=== PATIENT | female | born 1995 | race Caucasian/White ===

== ENCOUNTER 2016-12-06 08:22 | Inpatient (IN) | payer OTHER ==
[~2016-12-06] VITALS: Ht 162.6 cm; Wt 67.1 kg
[2016-12-06] MEDS ORDERED: OXYTOCIN/NORMAL SALINE 1,000 ML IV SCH ×2 (08:43→22:33)
[2016-12-06] MEDS ORDERED: TERBUTALINE SULFATE 1 MG/ML VIAL SUBCUT ONE (08:45)
[2016-12-06] MEDS ORDERED: DINOPROSTONE 10 MG SUPP VG ONE (08:45)
[2016-12-06] MEDS: LR 1,000 ML IV SCH ×4 (09:29→20:56)
[2016-12-06 09:37] LABS: BASOPHILS # (AUTO) 0.1 K/uL (0.0-0.2); EOSINOPHILS # (AUTO) 0.1 K/uL (0.0-0.4); EOSINOPHILS % (AUTO) 0.7 % (0.0-4.0); LYMPHOCYTES # (AUTO) 2.3 K/uL (1.0-5.5); MEAN CORPUSCULAR HGB CONC 33 % (32-36); MEAN CORPUSCULAR VOLUME 92 fL (79.0-98.0); MONOCYTES # (AUTO) 0.5 K/uL (0.0-1.0); RED CELL DISTRIBUTION WIDTH 13.4 % (9.0-15.0)
[2016-12-06 09:41] LABS: BASOPHILS % (AUTO) 0.7 % (0.0-2.0); HEMATOCRIT 39.2 % (36-48); HEMOGLOBIN 12.8 g/dL (12.0-16.0); LYMPHOCYTES % (AUTO) 25.9 % (20.5-51.5); MEAN CORPUSCULAR HEMOGLOBIN 30 pg (27-31); MONOCYTES % (AUTO) 5.9 % (1.7-9.3); NEUTROPHILS # (AUTO) 5.8 K/uL (1.8-7.7); NEUTROPHILS % (AUTO) 66.8 % (40.0-70.0); RED BLOOD CELL COUNT(AUTO) 4.25 MIL/uL (4.2-6.2); WHITE BLOOD COUNT (AUTO) 8.8 K/uL (4.8-10.8)
[2016-12-06 10:03] LABS: PLATELET COUNT (AUTO) 89 K/uL (130-430)
[2016-12-06 14:44] VITALS: BP_SYST 124
[2016-12-06] MEDS: NALBUPHINE HCL 10 MG/ML AMP IVP PRN ×2 (15:21→17:30)
[2016-12-06] MEDS ORDERED: ACETAMINOPHEN 325 MG TABLET PO PRN (15:45)
[2016-12-06] MEDS ORDERED: ACETAMINOPHEN 325 MG TABLET ONE (15:53)
[2016-12-06] MEDS ORDERED: FENT2mCg/mL-ROPIVA0.2%/NS EPID 150 ML EP ONE (19:42)
[2016-12-06] MEDS ORDERED: LR 500 ML IV ONE (20:41)
[2016-12-06] MEDS ORDERED: ePHEDrine sulfate 50 MG/ML VIAL IVP PRN (20:45)
[2016-12-06] MEDS ORDERED: FENT2mCg/mL-ROPIVA0.2%/NS EPID 150 ML EP SCH (20:45)
[2016-12-06] MEDS ORDERED: TEMAZEPAM 15 MG CAPSULE PO PRN (21:00)
[2016-12-06] MEDS ORDERED: OXYTOCIN/NORMAL SALINE 1,000 ML IV ONE (22:33)
[2016-12-06] MEDS ORDERED: DOCUSATE SODIUM 100 MG CAPSULE PO PRN (22:45)
[2016-12-06] MEDS ORDERED: MEASLES,MUMPS&RUBELLA VACC/PF 12500 UNIT/0.5 ML VIAL SUBQ PRN (22:45)
[2016-12-06] MEDS ORDERED: ANUSOL 1 EA SUPP.RECT (PREPARATION H) RC PRN (22:45)
[2016-12-06] MEDS ORDERED: RHO(D) IMMUNE GLOBULIN/MALTOSE 1500 UNITS/1.3 ML (WINHRO) IM PRN (22:45)
[2016-12-06] MEDS ORDERED: DERMOPLAST SPRAY TP PRN (22:45)
[2016-12-06] MEDS ORDERED: HYDROCORTISONE 0.5%, 28.35 GM TOPICAL CREAM TP PRN (22:45)
[2016-12-06] MEDS ORDERED: METHYLERGONOVINE MALEATE 0.2 MG TABLET PO PRN (22:45)
[2016-12-06] MEDS ORDERED: LANOLIN 7 GM OINT. TP PRN (22:45)
[2016-12-06] MEDS ORDERED: OXYCODONE/ACETAMINOPHEN 5-325 TABLET PO PRN ×2 (22:45)
[2016-12-06] MEDS ORDERED: GLYCERIN/WITCH HAZEL (TUCKS PADS) TP PRN (22:45)
[2016-12-06] MEDS ORDERED: SENNOSIDES/DOCUSATE SODIUM 1 TAB TABLET(SENOKOT-S) PO PRN (22:45)
[2016-12-06] MEDS ORDERED: HYDROcodone/ACETAMIN 5-325 MG TAB (NORCO/ VICODIN) PO PRN (22:45)
[2016-12-07] MEDS: IBUPROFEN 600 MG TABLET PO SCH ×5 (00:15→23:57)
[2016-12-07 07:36] LABS: BASOPHILS % (AUTO) 0.1 % (0.0-2.0); EOSINOPHILS % (AUTO) 0.1 % (0.0-4.0); HEMATOCRIT 31.9 % (36-48); HEMOGLOBIN 10.5 g/dL (12.0-16.0); LYMPHOCYTES # (AUTO) 2.1 K/uL (1.0-5.5); LYMPHOCYTES % (AUTO) 15.6 % (20.5-51.5); MEAN CORPUSCULAR HEMOGLOBIN 30 pg (27-31); MEAN CORPUSCULAR HGB CONC 33 % (32-36); MEAN CORPUSCULAR VOLUME 92 fL (79.0-98.0); MONOCYTES # (AUTO) 0.9 K/uL (0.0-1.0); NEUTROPHILS # (AUTO) 10.6 K/uL (1.8-7.7); NEUTROPHILS % (AUTO) 77.2 % (40.0-70.0); RED BLOOD CELL COUNT(AUTO) 3.47 MIL/uL (4.2-6.2); RED CELL DISTRIBUTION WIDTH 13.6 % (9.0-15.0)
[2016-12-07 08:07] LABS: WHITE BLOOD COUNT (AUTO) 13.6 K/uL (4.8-10.8)
[2016-12-07 08:21] LABS: PLATELET COUNT (AUTO) 81 K/uL (130-430)
[2016-12-08] MEDS: IBUPROFEN 600 MG TABLET PO SCH ×2 (05:59→12:40)
[2016-12-08] MEDS ORDERED: HYDROCORTISONE 0.5%, 28.35 GM TOPICAL CREAM TP ONE (14:54)
[2016-12-08] MEDS ORDERED: MINERAL OIL 30 ML UDC PO ONE (14:54)
== END 2016-12-08 14:55 | disposition home or self-care (01) | DRG 775 ==
LOC: SPU 08:22
PROVIDERS: ADMIT Specialist; ATTEND Specialist
PROC: 10E0XZZ Delivery of Products of Conception, External Approach (ICD-10-PCS; principal; 2016-12-06)
PROC: 3E0P7GC Introduction of Other Therapeutic Substance into Female Reproductive, Via Natural or Artificial Opening (ICD-10-PCS; 2016-12-06)
PROC: 0W8NXZZ Division of Female Perineum, External Approach (ICD-10-PCS; 2016-12-06)
PROC: 3E0R3CZ (ICD-10-PCS; 2016-12-06)
PROC: 00HU33Z Insertion of Infusion Device into Spinal Canal, Percutaneous Approach (ICD-10-PCS; 2016-12-06)
PROC: 3E0134Z Introduction of Serum, Toxoid and Vaccine into Subcutaneous Tissue, Percutaneous Approach (ICD-10-PCS; 2016-12-06)
DX: O80 Encounter for full-term uncomplicated delivery (principal); Z23 Encounter for immunization; Z37.0 Single live birth; Z3A.40 40 weeks gestation of pregnancy
CPT/HCPCS: 36415; 81002-TC; 85025; 85049-TC; 86592; 86886; 86900; 86901; 94760; J2300; J2590; J3010; J7120